=== PATIENT | female | born 1995 | race Caucasian/White ===

== ENCOUNTER 2016-07-24 14:49 | Inpatient (IN) | payer OTHER ==
--- NOTE | 2016-07-24 15:07 | EDPHY ---
H & P Stated Complaint: M1, SI - Personal History LMP (Females 10-55): 8-14 Days Ago Current Tetanus Diphtheria and Acellular Pertussis (TDAP): Yes - Medical/Surgical History Hx Asthma: No Hx Chronic Respiratory Disease: No Hx Diabetes: No Hx Cardiac Disease: No Hx Renal Disease: No Hx Cirrhosis: No Hx Alcoholism: No Hx HIV/AIDS: No Hx Splenectomy or Spleen Trauma: No Other PMH: denies - Social History Smoking Status: Never smoked Time Seen by Provider: 07/24/16 14:57 HPI/ROS: CHIEF COMPLAINT: Suicidal ideation HISTORY OF PRESENT ILLNESS: 20-year-old female arrives via police on an M1 hold after she went to [facility] voluntarily discussed increasing thoughts of depression, increasing suicidal ideation without plan. Prior history of cutting behavior, none recently. Denies hallucination. Denies alcohol or drug use. No history of hospitalization for depression or suicidal ideation although she notes she has been experiencing similar emotions for several years. PRIMARY CARE PROVIDER: [facility] REVIEW OF SYSTEMS: A ten point review of systems was performed and is negative with the exception of the items mentioned in the HPI PAST MEDICAL & SURGICAL HISTORY: Depression SOCIAL HISTORY: no alcohol or drug use PHYSICAL EXAM (Prior to examination, patient consented to physical exam, hands were washed and my usual and customary physical exam procedures followed) 1) GENERAL: Well-developed, well-nourished, alert and oriented. Appears to be in no acute distress.Cooperative 2) HEAD: Normocephalic, atraumatic 3) HEENT: Pupils equal, round, reactive to light bilaterally. Sclera anicteric. 4) NECK: Full range of motion, no meningeal signs. 5) LUNGS: Clear auscultation bilaterally, no wheezes, no rhonchi, no retractions. 6) HEART: Regular rate and rhythm, no murmur, no heave, no gallop. 7) ABDOMEN: No guarding, no rebound, no focal tenderness, 8) MUSCULOSKELETAL: multiple subacute scars. . 9) BACK: no visual or palpable abnormality. 10) SKIN: No rash, no petechiae. 11) Psychiatric: Patient is oriented X 3, there is no agitation. DIFFERENTIAL DIAGNOSIS: no particular include but limited to suicidal ideation , homicidal ideation, depression (Lesley Victoria Sarah Beth) Constitutional: Initial Vital Signs Temperature (C) 36.7 C 07/24/16 14:49 Heart Rate 112 H 07/24/16 14:49 Respiratory Rate 18 07/24/16 14:49 Blood Pressure 148/102 H 07/24/16 14:49 O2 Sat (%) 98 07/24/16 14:49 O2 Delivery Mode Room Air Allergies/Adverse Reactions: No Known Allergies Allergy (Unverified 07/24/16 15:02) Home Medications: Medication Instructions Recorded Multivitamins [Multivitamin (*)] 1 each PO DAILY 07/24/16 Medical Decision Making ED Course/Re-evaluation: 3:06 p.m.: Patient evaluated by myself she is calm, cooperative. Will plan on mental health evaluation. 5:00 p.m.: Care turned over to Dr. Alan Mathur (Lesley Victoria Sarah Beth) Other Provider: PHYSICIAN DOCUMENTATION: The patient was evaluated and managed by the Physician Dispatch Lead and myself. I have reviewed the chart and agree with the findings and plan of care as documented. In addition, I examined the patient myself at 2043. History confirmed as depression, severe. Physical findings as follows: Alert, conversant, slightly tearful. The patient will be transferred to [facility] for inpatient psychiatric hospital bed not available at this facility, in stable condition; accepting physician is Dr. Beverly. I am the secondary supervising physician. (Alan Mathur S) - Data Points Laboratory Results: Laboratory Results 07/24/16 16:20 07/24/16 16:20 07/24/16 07/24/16 07/24/16 16:27 16:20 16:20 WBC 7.36 10^3/uL 10^3/uL (3.80-9.50) RBC 5.04 10^6/uL 10^6/uL (4.18-5.33) Hgb 14.1 g/dL g/dL (12.6-16.3) Hct 42.1 % % (38.0-47.0) MCV 83.5 fL fL (81.5-99.8) MCH 28.0 pg pg (27.9-34.1) MCHC 33.5 g/dL g/dL (32.4-36.7) RDW 14.0 % % (11.5-15.2) Plt Count 305 10^3/uL 10^3/uL (150-400) MPV 8.8 fL fL (8.7-11.7) Neut % (Auto) 75.0 % H % (39.3-74.2) Lymph % (Auto) 19.7 % % (15.0-45.0) Providence % (Auto) 4.3 % L % (4.5-13.0) Eos % (Auto) 0.3 % L % (0.6-7.6) Baso % (Auto) 0.4 % % (0.3-1.7) Nucleat RBC Rel Count 0.0 % % (0.0-0.2) Absolute Neuts (auto) 5.52 10^3/uL 10^3/uL (1.70-6.50) Absolute Lymphs (auto) 1.45 10^3/uL 10^3/uL (1.00-3.00) Absolute Monos (auto) 0.32 10^3/uL 10^3/uL (0.30-0.80) Absolute Eos (auto) 0.02 10^3/uL L 10^3/uL (0.03-0.40) Absolute Basos (auto) 0.03 10^3/uL 10^3/uL (0.02-0.10) Absolute Nucleated RBC 0.00 10^3/uL 10^3/uL (0-0.01) Immature Gran % 0.3 % % (0.0-1.1) Immature Gran # 0.02 10^3/uL 10^3/uL (0.00-0.10) Sodium 142 mEq/L mEq/L (134-144) Potassium 4.4 mEq/L mEq/L (3.5-5.2) Chloride 104 mEq/L mEq/L (97-110) Carbon Dioxide 25 mEq/l mEq/l (22-31) Anion Gap 13 mEq/L mEq/L (8-16) BUN 13 mg/dL mg/dL (7-23) Creatinine 0.8 mg/dL mg/dL (0.6-1.0) Estimated GFR > 60 Glucose 94 mg/dL mg/dL (70-100) Calcium 10.3 mg/dL mg/dL (8.5-10.4) TSH 3.750 uIU/mL uIU/mL (0.465-4.680) Urine Test Salicylates < 1.0 mg/dL L mg/dL (2.0-20.0) Urine Opiates Screen Acetaminophen < 10 mcg/mL L mcg/mL (10.0-30.0) Urine Barbiturates Ur Phencyclidine Scrn Ur Amphetamine Screen U Benzodiazepines Scrn Urine Cocaine Screen U Marijuana (THC) Screen Ethyl Alcohol < 10 mg/dL mg/dL (0-10) 07/24/16 07/24/16 15:50 15:50 WBC RBC Hgb Hct MCV MCH MCHC RDW Plt Count MPV Neut % (Auto) Lymph % (Auto) Providence % (Auto) Eos % (Auto) Baso % (Auto) Nucleat RBC Rel Count Absolute Neuts (auto) Absolute Lymphs (auto) Absolute Monos (auto) Absolute Eos (auto) Absolute Basos (auto) Absolute Nucleated RBC Immature Gran % Immature Gran # Sodium Potassium Chloride Carbon Dioxide Anion Gap BUN Creatinine Estimated GFR Glucose Calcium TSH Urine Test NEGATIVE Salicylates Urine Opiates Screen NEGATIVE (NEGATIVE) Acetaminophen Urine Barbiturates NEGATIVE (NEGATIVE) Ur Phencyclidine Scrn NEGATIVE (NEGATIVE) Ur Amphetamine Screen NEGATIVE (NEGATIVE) U Benzodiazepines Scrn NEGATIVE (NEGATIVE) Urine Cocaine Screen NEGATIVE (NEGATIVE) U Marijuana (THC) Screen NEGATIVE (NEGATIVE) Ethyl Alcohol Departure - Departure Disposition: [facility] IP Clinical Impression: Suicidal ideation, Severe major depression Referrals: NOT,SURE OF PCP [Other] - As per Instructions
[2016-07-24 16:35] LABS: % IMMATURE GRANULYOCYTES 0.3 % (0.0-1.1); ABSOLUTE IMMATURE GRANULOCYTES 0.02 10^3/uL (0.00-0.10); ADD DIFF? NO; ADD MORPH? NO; ADD SCAN? NO; ATYPICAL LYMPHOCYTE FLAG 30 (0-99); FRAGMENT RBC FLAG 0 (0-99); HEMATOCRIT 42.1 % (38.0-47.0); HEMOGLOBIN 14.1 g/dL (12.6-16.3); LEFT SHIFT FLG 0 (0-99); LIPEMIA HEMOLYSIS FLAG 80 (0-99); MEAN CELL HEMOGLOBIN CONCENTR. 33.5 g/dL (32.4-36.7); MEAN CELL VOLUME 83.5 fL (81.5-99.8); MEAN PLATELET VOLUME 8.8 fL (8.7-11.7); PLATELET CLUMPS FLAG 0 (0-99); PLATELET COUNT 305 10^3/uL (150-400); RED BLOOD CELL COUNT 5.04 10^6/uL (4.18-5.33)
[2016-07-24 16:42] LABS: ANION GAP 13 mEq/L (8-16); CALCIUM 10.3 mg/dL (8.5-10.4); CARBON DIOXIDE 25 mEq/l (22-31); CHLORIDE 104 mEq/L (97-110); CREATININE 0.8 mg/dL (0.6-1.0); ETHANOL SERUM < 10 mg/dL (0-10); GLOMERULAR FILTRATION RATE > 60; GLUCOSE 94 mg/dL (70-100); POTASSIUM 4.4 mEq/L (3.5-5.2); SALICYLATE < 1.0 mg/dL (2.0-20.0); SODIUM 142 mEq/L (134-144)
[2016-07-24] MEDS ORDERED: LORazepam 0.5 MG TAB PO PRN (21:40)
[2016-07-24] MEDS ORDERED: diphenhydrAMINE 25 MG CAP PO PRN (21:40)
[2016-07-24] MEDS ORDERED: MAG HYDROX/AL HYDROX/SIMETH 30 ML UDCUP PO PRN (21:40)
[2016-07-24] MEDS ORDERED: NICOTINE POLACRILEX 2 MG GUM B PRN (21:40)
[2016-07-24] MEDS ORDERED: ACETAMINOPHEN 325 MG TAB PO PRN (21:40)
[2016-07-24] MEDS ORDERED: MAGNESIUM HYDROXIDE 30 ML UDCUP PO PRN (21:40)
[2016-07-25 06:35] VITALS: O2SAT 97
--- NOTE | 2016-07-25 13:32 | BCON ---
[f rep st] BEHAVIORAL HEALTH CONSULTATION INTERNAL MEDICINE CONSULTATION DATE OF CONSULTATION: 07/25/2016 REFERRING PHYSICIAN: Filomena Beverly MD REASON FOR CONSULTATION: Medical clearance for inpatient behavioral health stay. HISTORY OF PRESENT ILLNESS: The patient presented to the emergency department yesterday with depression and suicidal ideation. She had been sent from the [facility] the [facility] [facility]. She was evaluated by the mental health team and admitted for further psychiatric care. She has no current medical complaints. PAST MEDICAL HISTORY: She has no history of any medical illnesses and has never had any surgeries. MEDICATIONS: She was taking only a multivitamin. ALLERGIES: There is an allergy listed to milk-containing products. 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 She is a nonsmoker. She uses occasional alcohol and occasional marijuana at parties. She lives with her boyfriend of 3 years and other friends from high school. FAMILY HISTORY: Noncontributory. REVIEW OF SYSTEMS: A 10-point review of systems was conducted and was negative. PHYSICAL EXAM: VITAL SIGNS: Blood pressure is 114/64, heart rate is 97, respiratory rate is 12, oxygen saturation is 97% on room air, temperature is 36.7 degrees centigrade. Her weight is 54.4 kg, for a body mass index of 20. GENERAL: This is a well-nourished, well-developed, but thin woman, appears her chronologic age, cooperative and in no acute distress. HEENT: Extraocular movements are intact. Pupils are equal, round, and reactive to light. Mucous membranes are moist. Dentition is in good condition. NECK: Supple. HEART: There is a regular rate and rhythm with no murmurs, rubs, or gallops. LUNGS: Clear to auscultation bilaterally. ABDOMEN: Soft, nontender, nondistended with normal active bowel sounds. EXTREMITIES: There is no cyanosis, clubbing, or edema. NEUROLOGIC: She is alert and oriented x3. Cranial nerves 2-12 are grossly intact. There is no focal weakness, and sensation is intact to light touch. LABORATORY DATA: Laboratory studies drawn in the emergency department. CBC was overall within normal limits. She had a minor elevation of relative neutrophils at 75% of no clinical significance. There was an absolute decrement of eosinophils at 0.02, also of no clinical significance. Serum chemistry revealed normal renal function and electrolytes. TSH was normal at 3.75. Urine test was negative and toxicology screen in the serum was negative for salicylate, acetaminophen or ethyl alcohol, and the urine was negative for any substances of abuse. ASSESSMENT AND RECOMMENDATIONS: 1. Depression, pending further evaluation and management per Psychiatry and the mental health team. 2. Normal exam with no medical concerns. I see no medical contraindications to the patient's continued stay on the inpatient behavioral health unit or to any psychiatric medications or procedures. Thank you very much for including me in the care of this patient, and please do not hesitate to contact me or the hospitalist service should there be need for further medical evaluation. /[id number]/MODL MTDD
[2016-07-25] MEDS: ESCITALOPRAM OXALATE 10 MG TAB PO SCH (13:33)
--- NOTE | 2016-07-25 16:18 | BAPA ---
[f rep st] ADMISSION PSYCHIATRIC ASSESSMENT CHIEF COMPLAINT: "I just had a lot of anxiety and stress." HISTORY OF PRESENT ILLNESS: Patient is a 20-year-old female with no previous psychiatric treatment history who was referred on an M1 hold from the [facility]. She had gone to the [facility] because she had been feeling more and more anxious and depressed and had been having thou ghts of suicide. She reports having anxiety and stress mostly over academic issues, specifically th e fact that she has been doing poorly in her classes. She states that she had been neglecting her s tudies and not attending class, due in part to feeling unmotivated and depressed, but also due to in creasing social anxiety. She states that the thought of leaving her apartment give can be overwhelm ing and trigger physiologic symptoms of panic. She states that if she forces herself to go or for b oyfriend encouraged her to go that this will calm down and that she actually does okay, but sometime s the anticipatory anxiety is overwhelming enough to prohibit her from leaving. She also states morris t she has not been sleeping for 2-3 weeks and will stay up almost all night and then sleep during th e day. She relates this to feeling overwhelmed and anxious at night and having "too many things on my mind." She denies any accelerated thinking or increased thought production or other manic sympto ms stating that she feels tired, but just has too many concerns to allow her to relax enough to fall asleep. She has a history of cutting which she has done since high school and states that had lakeisha en worse several months ago but she has not done this in the last 2 months. She is concerned about that, however, and states that recently she has began begun having thoughts of cutting again and al so having nonspecific thoughts about , dying and suicide. She states that she is concerned for her overall safety which is why she went to the [facility] at the encouragement of her boyfr iebelinda. She describes other neurovegetative dysfunction including decreased appetite, with approximat e 10 pound weight loss. Poor attention and concentration, poor energy and motivation and significan t anhedonia. There was some mention in the [facility] report that she was having "rages." She seems genui kristen confused as to what this may reference stating that she does not have anger outbursts, but that she would suddenly begin to cry and become overwhelmed if there is too much noise or of stressful s ituations arise. She states that sometimes she will cut in these circumstances "out of self hate to blow off stress." Again, she states she has not cut in 2 months at this point, and states "I hope I would never do again." PAST PSYCHIATRIC HISTORY: Significant for no previous psychiatric treatments of any kind. She has not seen the therapist, has not taken any psychotropic medications. Has had no psychiatric hospital izations and has had no previous suicide attempts. ALLERGIES: No known medical allergies. CURRENT MEDICATIONS: None, including no [id number] or herbal medications. PAST MEDICAL HISTORY: Noncontributory with no history of central nervous system disease. SOCIAL HISTORY: The patient was born in [place] and then moved to [place], [place] about 5 y ears ago with her family due to her father's job. She states that her mother and father are still m arried, but that her father is currently living in [facility]. She has an older brother, who is a senior at [employer]. She herself is a sophomore at the [employer] and is studying biology and the ecology. She states she hopes someday to work in the [employer] of some type. She had previously received good grades, though states that she is at the verge of flunking several classes this semester due to her poor attendance and investment. She live s with her boyfriend of 3 years and 2 other friends from [place] in a home off campus. 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 She enjoys art, both painting and drawing. She likes to hike, play video games and hang out with her friends. She states her curralida t group of friends, including her boyfriend are very supportive. She vacillates somewhat on her rel ationship with her parents stating that they are "really good people and not abusive or anything," b ut that she is afraid that if they find out that she is in this hospital they will overreact and morris t she wants to "let them know on my own time." SUBSTANCE ABUSE HISTORY: The patient states she uses alcohol 1 or 2 times and occasional marijuana. FAMILY HISTORY: Noncontributory per patient's report, though her paternal grandmother may have suff ered from depression after the diagnosis of cancer. ADMISSION LABORATORY: CBC is normal. Serum chemistries are normal. Urine drug screen shows no sub stances of abuse. TSH is normal at 3.75 and urine test is negative. MENTAL STATUS EXAMINATION: Reveals a thin, though healthy-appearing female. She is dress ed casually in hospital [facility]. She is pleasant, cooperative and interactive. Her affect is slightly blunted though stable and appropriate. Her mood is described as "anxious." Her thought process is linear and goal directed. Her thought content reveals no evidence of psychosis. She is alert and oriented to person, place, time, and situation, and her sensorium is clear. She continues to state that she has thoughts of suicide but "I know I would never act on them." She denies at any time hav ing any intent to harm herself or plan. Her intellect appears to be average to above average as rony denced by her educational history, fund of knowledge, and vocabulary. Her insight and judgment appe ar to be good. IMPRESSION: Major depressive episode, recurrent, severe, without psychosis. Self-injurious behavio rs, academic stress, possible family conflicts. The patient is a 20-year-old female with history of some depressed mood and anxiety for at least the past several months but no previous treatments. She notes emerging suicidality prompting the outpatient clinic to place her on an M1 hold. I discussed with her various options for the zehra atment of her depression and anxiety including psychotherapy, subtractive life changes and medicatio ns. She is interested in antidepressant medications and we discussed the potential usefulness of a serotonin-selective antidepressant. After review of the various choices, she prefers a trial of Jose apro. We will begin at 10 mg after thorough review of the risks, benefits and alternatives, includi ng the warnings for suicidal adverse events in young adults. Will give a dose today and tomorrow mo rning and re-evaluate her stability at that time. I believe that her imminence in regard to dangero usness is low and would likely supported a discharge as early as tomorrow if everything seems to be going well. Estimated length of stay is 2-3 days. /[id number]/MODL
[2016-07-26 06:16] VITALS: BP 110/65; PULSE 105; RESP 15; TEMP 97.9
[2016-07-26] MEDS: ESCITALOPRAM OXALATE 10 MG TAB PO SCH (11:27)
--- NOTE | 2016-07-26 13:29 | SOAPPROG ---
SOAP Progress Note Assessment/Plan: Assessment: Plan: Objective: Vital Signs Temp Pulse Resp BP Pulse Ox 36.6 C 105 H 15 110/65 97 07/26/16 06:00 07/26/16 06:00 07/26/16 06:00 07/26/16 06:00 07/26/16 06:00 - Time Spent With Patient Time Spent With Patient: 35min ICD10 Worksheet Patient Problems: Problems Problem Status Onset Severe major depression Acute Suicidal ideation Acute
--- NOTE | 2016-07-26 15:21 | BDS ---
[f rep st] BEHAVIORAL HEALTH DISCHARGE SUMMARY ADMISSION DIAGNOSES: 1. Major depressive episode, recurrent, severe without psychosis, with suicidal ideation 2. History of self-injurious behavior, Academic stress, Possible family conflict. DISCHARGE DIAGNOSES: 1. Major depressive disorder, recurrent, moderate to severe. 2. Anxiety disorder unspecified, rule out generalized anxiety disorder, rule out social phobia, rule out panic disorder. 3. Suicidal ideation, resolved. BRIEF HISTORY: 20-year-old, female with no previous psychiatric treatment history who was referred on an M1 hold from the [facility] where she presented voluntarily at encouragement of her boyfriend due to increasing depression, anxiety, and thoughts of suicide. She denied any plan or intent of self-harm but did endorse a history of self cutting behavior starting 2 years ago, none in the past 2 months, and did not want to resume self cutting. Previous history of self cutting was not attempt to harm herself but was to help relieve stress and anxiety. Suicidal thoughts have been increasing recently with nonspecific thoughts about , dying, and suicide. She denied any plan or intent but did feel symptoms were getting worse so presented for treatment/help. She described other neurovegetative symptoms including decreased appetite with 10-pound weight loss, poor attention and concentration, poor energy and motivation, and significant anhedonia. She also had occasional crying spells when feeling very overwhelmed or stressed. The patient reports a long history of depression she dates back to age 15 but has not sought treatment and also reported that her immediate family was not aware. There is no history of psychotic symptoms, no history of sayda. No significant family psychiatric history. There is no significant history of substance use although patient admits occasionally drinking alcohol and smoking marijuana at parties. She reports significant anxiety history, anticipatory anxiety becoming overwhelming enough to prohibit her from leaving her home sometimes. She has anxiety at night with "too many things on my mind" causing her to have difficulty sleeping, and she has not been sleeping well for the past 2 or 3 weeks at night, rather sleeping during the day. She has had panic attacks in the past. The patient reports a supportive boyfriend of 3 years and roommates with whom she lives. She works part-time at [employer], about 17 hours a week. She is a sophomore at studying biology any ecology, but her grades have been dropping due to poor attendance and motivation. She enjoys art, primarily painting and drawing, and uses this as a stress relief. She was placed on an M1 hold at [facility] and admitted for evaluation, treatment, and safety. Patient did not have any significant past medical problems. Urine drug screen on admission was negative, and TSH was 3.3. A urine test was negative. HOSPITAL COURSE: Patient was admitted to [address] [place] [address] on M1 hold and placed on suicide precautions. She consistently denied any plan or intent to harm herself , reporting that suicidal ideations were primarily passive and worse when she felt anxious. She rated her suicidal ideation as an 8/10 on admission, but as noted with no plan or intent to harm herself. Upon interview with admitting psychiatrist, Dr. Lindsey, treatment options were discussed, and patient agreed to a trial of Lexapro. She was started on Lexapro 10 mg daily and received 1 dose on July 25 at noon and second dose on July 26 at 10 a.m. She was educated on the risks and benefits, including potential usefulness of serotonin antidepressant medication as well as the risks which included warnings for suicidal adverse events in young adults. She denied any side effects of this medication on interview on day of discharge, reporting only mild headache and possible mild sedation. She will continue to monitor these side effects for improvement. If feeling Lexapro causes sedation, she can take at night. She was scheduled for an outpatient medication management appointment on 07/30/2016. Patient was initially too anxious to participate in group on day of admission, but on day of discharge , she had attended group and done well. She used art work to decrease stress including making origami and drawing. She reported having no suicidal ideation at time of discharge but aware that such thoughts will come and go and agreed that if she notes any increase in intensity, frequency, or finding herself starting to plan or have more specific thoughts of suicide, that she will immediately call the crisis number, reach out for help, or go to the walk-in mental health crisis clinic. Patient slept well during her hospital stay, admitting she has taken Benadryl 25-50mg h.s. prn at home to help with sleep so this was added but not needed on unit. She expressed motivation to work with Student [employer] on her classes and allowing for her mental health needs. She was glad to have been hospitalized and seemed sincere in stating so. She felt that being here helped her with " talking about problems and making plans for my future" including talking with her parents who are supportive but previously did not know she was struggling with depression and anxiety. They were very supportive and talked with career information specialist as well as patient, and patient felt supported by them. Also states that her boyfriend came to visit and he talked with the other 2 roommates who are also patient's friends, and now they are also more aware of her struggles, and patient feels this will be additionally supportive for her. She worked on a safety plan during her hospital stay which was felt to be well thought out. She is glad to have been set up with a therapist and prescriber for early next week and felt ready for discharge today. It was felt she had benefitted from her hospital stay maximally and did not need to be further in the hospital due to no acute safety concerns and a plan in place for followup after discharge. Mental health hold will be terminated at discharge. Mother came to [facility] for support and will tile picker patient at discharge. MENTAL STATUS EXAM: On discharge, thin, healthy-appearing female, dressed casually. She is cooperative and engaged with good eye contact. Affect was calm, appropriate, reserved but otherwise euthymic. Mood was "getting better." Thoughts were linear, goal directed with no delusions, and she denied any psychotic symptoms. She is alert and oriented to person, place, time, and situation. Cognition was intact. She acknowledged suicidal ideation , passive which "come and go" but, at time of interview, denied having any suicidal ideation and was clearly future oriented. She denied at any time having any intent to harm herself or having had any plans. Her only suicidal thoughts that she reports having would be of "not being around." Insight and judgment were both good. Intellect seemed about average. DISCHARGE MEDICATIONS: Lexapro 10 mg p.o. daily, prescription provided for 1 month supply and no refills. The patient can continue with [id number] Benadryl 25 mg q.h.s. p.r.n. insomnia. DISCHARGE INSTRUCTIONS: Followup at [facility] with psychiatrist for intake medication appointment on 07/30/2016 as scheduled and on 07/31/2016 at 15:30 with private therapist covered by insurance.. Contact Student Services for additional support as discussed. Mother will tile picker patient from unit at discharge. Mental health hold terminated at time of discharge. /[id number]/MODL MTDD
== END 2016-07-26 14:30 | disposition home or self-care (01) | DRG 885 ==
LOC: BBEH 21:25
PROVIDERS: ADMIT Psychiatry & Neurology Behavioral Neurology & Neuropsychiatry; ATTEND Psychiatry & Neurology Behavioral Neurology & Neuropsychiatry
DX: F33.2 Major depressive disorder, recurrent severe without psychotic features (principal); F41.9 Anxiety disorder, unspecified
CPT/HCPCS: 80305; G0480

== ENCOUNTER 2017-02-01 11:08 | Emergency (ER) | payer OTHER ==
--- NOTE | 2017-02-01 11:26 | EDPHY ---
H & P Stated Complaint: Left upper quad abdominal pain x 2 weeks worse since last night Time Seen by Provider: 02/01/17 11:25 - Personal History Current Tetanus/Diphtheria Vaccine: Unsure Current Tetanus Diphtheria and Acellular Pertussis (TDAP): Unsure - Medical/Surgical History Hx Asthma: No Hx Chronic Respiratory Disease: No Hx Diabetes: No Hx Cardiac Disease: No Hx Renal Disease: No Hx Cirrhosis: No Hx Alcoholism: No Hx HIV/AIDS: No Hx Splenectomy or Spleen Trauma: No Other PMH: denies. no abd surgeries - Social History Smoking Status: Never smoked Constitutional: Initial Vital Signs Temperature (C) 36.7 C 02/01/17 11:12 Heart Rate 90 02/01/17 11:12 Respiratory Rate 16 02/01/17 11:12 Blood Pressure 102/71 02/01/17 11:12 O2 Sat (%) 98 02/01/17 11:12 O2 Delivery Mode Room Air Allergies/Adverse Reactions: Milk Containing Products [dairy] Allergy (Verified 07/24/16 22:17) Home Medications: Medication Instructions Recorded Ondansetron Odt [Zofran Odt 4 mg 4 mg PO Q4 PRN #10 tab 02/01/17 (RX)] Sertraline HCl 02/01/17 Medical Decision Making - Diagnostics Imaging Results: Imaging Impressions Abdomen Ultrasound 02/01/17 11:40 Impression: 1. No acute findings in the abdomen 2. Probable mild fatty infiltration of the liver. Findings discussed with Papito Dunaway MD 02/01/2017 at 13:04. Imaging: Discussed imaging studies w/ factory hand Radiologist ED Course/Re-evaluation: CHIEF COMPLAINT: Abdominal pain HISTORY OF PRESENT ILLNESS: The patient is a 21 y/o female with a history of migraines complaining of intermittent abdominal pain for a few weeks that became constant last night. She describes her pain as "throbbing," but mild in severity. She has associated nausea and mild dizziness, though she notes she had a migraine yesterday and took medication that can have dizziness as a side effect. She cannot identify obvious precipitating cause of her symptoms. She denies vomiting, diarrhea, fever, or other complaints. She has a remote history of bladder surgery as child and gets occasional UTIs, but is otherwise healthy. Her last menstrual period was 1 week ago. REVIEW OF SYSTEMS: A 10 point review of systems was performed and is negative with the exception of the elements mentioned in the history of present illness. PHYSICAL EXAM: HR, BP, O2 Sat, RR. Temp noted General Appearance: Alert, well hydrated, appropriate, and non-toxic appearing. Head: Atraumatic without scalp tenderness or obvious injury Eyes: Pupils equal, round, reactive to light and accommodation, EOMI, no trauma , no injection. Nose: Atraumatic, no rhinorrhea, clear. Throat: There is no erythema or exudates, no lesions, normal tonsils, mucus membranes moist. Neck: Supple, nontender, no lymphadenopathy. Respiratory: No retractions, no distress, no wheezes, and no accessory muscle use. Lungs are clear to auscultation bilaterally. Cardiovascular: Regular rate and rhythm, no murmurs, rubs, or gallops. Good capillary refill all extremities. Gastrointestinal: Abdomen is soft, minimal periumbilical tenderness, non- distended, no masses, no rebound, no guarding, no peritoneal signs. Musculoskeletal: Normal active ROM of all extremities, atraumatic. Neurological: Alert, appropriate, and interactive. The patient has non-focal cranial nerves, motor, sensory, and cerebellar exam. Skin: No rashes, good turgor, no nodules on palpation. Past medical history: Migraines, occasional UTIs, possible POTS, depression/ anxiety Past surgical history: remote history of bladder surgery as child Family history: noncontributory Social history: [employer] student, lives in [place] Prior medical records reviewed including psychiatric admission 07/24/16 for depression. DIAGNOSTICS/PROCEDURES/CRITICAL CARE TIME: Abdominal US: nothing acute DIFFERENTIAL DIAGNOSIS: The differential diagnosis for the patient's abdominal pain included but was not limited to ovarian cyst, pelvic inflammatory disease, ovarian torsion, urinary tract infection, ectopic , cholecystitis, and appendicitis. MEDICAL DECISION MAKING: This is a well-appearing 21 y/o female with a history of migraines who presents with a few-week history of mild periumbilical abdominal pain and nausea that became constant last night. Her abdomen is soft with only slight periumbilical tenderness on exam. I do not have a high suspicion for surgical process. Plan for IV, labs, UA, and abdominal US. 2L IV NS administered. Reassessed patient and discussed work up. Her labs and ultrasound have not revealed obvious cause of her symptoms. She feels improved after IV fluids and ready to go home. Her abdomen is benign. I've recommended follow up with her PCP for unimproved symptoms. She will receive a script for Zofran and standard return precautions. She is comfortable with this plan. - Data Points Laboratory Results: Laboratory Results 02/01/17 11:40 02/01/17 11:40 02/01/17 02/01/17 02/01/17 12:50 11:40 11:40 WBC RBC Hgb Hct MCV MCH MCHC RDW Plt Count MPV Neut % (Auto) Lymph % (Auto) [place] % (Auto) Eos % (Auto) Baso % (Auto) Nucleat RBC Rel Count Absolute Neuts (auto) Absolute Lymphs (auto) Absolute Monos (auto) Absolute Eos (auto) Absolute Basos (auto) Absolute Nucleated RBC Immature Gran % Immature Gran # Sodium 141 mEq/L mEq/L (134-144) Potassium 4.0 mEq/L mEq/L (3.5-5.2) Chloride 104 mEq/L mEq/L (97-110) Carbon Dioxide 23 mEq/l mEq/l (22-31) Anion Gap 14 mEq/L mEq/L (8-16) BUN 9 mg/dL mg/dL (7-23) Creatinine 0.7 mg/dL mg/dL (0.6-1.0) Estimated GFR > 60 Glucose 69 mg/dL L mg/dL (70-100) Calcium 10.5 mg/dL H mg/dL (8.5-10.4) Lipase 123 IU/L IU/L (23-300) Beta HCG, Qual NEGATIVE Urine Color Pending Urine Appearance Pending Urine pH Pending Ur Specific [place] Pending Urine Protein Pending Urine Ketones Pending Urine Blood Pending Urine Nitrate Pending Urine Bilirubin Pending Urine Urobilinogen Pending Ur Leukocyte Esterase Pending Urine Glucose Pending 02/01/17 11:40 WBC 3.50 10^3/uL L 10^3/uL (3.80-9.50) RBC 4.69 10^6/uL 10^6/uL (4.18-5.33) Hgb 13.6 g/dL g/dL (12.6-16.3) Hct 40.1 % % (38.0-47.0) MCV 85.5 fL fL (81.5-99.8) MCH 29.0 pg pg (27.9-34.1) MCHC 33.9 g/dL g/dL (32.4-36.7) RDW 13.4 % % (11.5-15.2) Plt Count 233 10^3/uL 10^3/uL (150-400) MPV 9.1 fL fL (8.7-11.7) Neut % (Auto) 49.4 % % (39.3-74.2) Lymph % (Auto) 42.0 % % (15.0-45.0) [place] % (Auto) 7.1 % % (4.5-13.0) Eos % (Auto) 0.9 % % (0.6-7.6) Baso % (Auto) 0.6 % % (0.3-1.7) Nucleat RBC Rel Count 0.0 % % (0.0-0.2) Absolute Neuts (auto) 1.73 10^3/uL 10^3/uL (1.70-6.50) Absolute Lymphs (auto) 1.47 10^3/uL 10^3/uL (1.00-3.00) Absolute Monos (auto) 0.25 10^3/uL L 10^3/uL (0.30-0.80) Absolute Eos (auto) 0.03 10^3/uL 10^3/uL (0.03-0.40) Absolute Basos (auto) 0.02 10^3/uL 10^3/uL (0.02-0.10) Absolute Nucleated RBC 0.00 10^3/uL 10^3/uL (0-0.01) Immature Gran % 0.0 % % (0.0-1.1) Immature Gran # 0.00 10^3/uL 10^3/uL (0.00-0.10) Sodium Potassium Chloride Carbon Dioxide Anion Gap BUN Creatinine Estimated GFR Glucose Calcium Lipase Beta HCG, Qual Urine Color Urine Appearance Urine pH Ur Specific [place] Urine Protein Urine Ketones Urine Blood Urine Nitrate Urine Bilirubin Urine Urobilinogen Ur Leukocyte Esterase Urine Glucose Medications Given: Discontinued Medications Sodium Chloride (Ns) 1,000 mls @ 0 mls/hr IV ONCE ONE PRN Reason: Wide Open Stop: 02/01/17 11:39 Last Admin: 02/01/17 11:39 Dose: 1,000 mls Sodium Chloride (Ns) 1,000 mls @ 0 mls/hr IV EDNOW ONE; Wide Open PRN Reason: Protocol Stop: 02/01/17 11:40 Last Admin: 02/01/17 11:42 Dose: Not Given Departure - Departure Disposition: Home, Routine, Self-Care Clinical Impression: Abdominal pain Qualifiers: Abdominal location: periumbilical Qualified Code(s): R10.33 - Periumbilical pain Condition: Good Instructions: Ondansetron (By mouth), Acute Abdominal Pain (ED) Additional Instructions: Use Zofran as prescribed as needed for nausea and vomiting. Follow up with your primary care provider for unimproved symptoms over the next few days. Return to the ED for unimproved symptoms. Referrals: [facility],. [Clinic] - As per Instructions Prescriptions: Ondansetron Odt [Zofran Odt 4 mg (RX)] 4 mg PO Q4 PRN #10 tab PRN Reason: Nausea/Vomiting, Use 1st Report Scribed for: Papito Dunaway Report Scribed by: Shauna Dunham Date of Report: 02/01/17 Time of Report: 11:41
[2017-02-01] MEDS ORDERED: NS 1,000 ML IV ONE ×2 (11:38→11:39)
[2017-02-01 11:46] LABS: ADD DIFF? NO; ADD MORPH? NO; ADD SCAN? NO; ATYPICAL LYMPHOCYTE FLAG 30 (0-99); FRAGMENT RBC FLAG 0 (0-99); HEMATOCRIT 40.1 % (38.0-47.0); HEMOGLOBIN 13.6 g/dL (12.6-16.3); LEFT SHIFT FLG 0 (0-99); LIPEMIA HEMOLYSIS FLAG 90 (0-99); MEAN CELL HEMOGLOBIN CONCENTR. 33.9 g/dL (32.4-36.7); MEAN CELL VOLUME 85.5 fL (81.5-99.8); MEAN PLATELET VOLUME 9.1 fL (8.7-11.7); PLATELET CLUMPS FLAG 0 (0-99); PLATELET COUNT 233 10^3/uL (150-400); RED BLOOD CELL COUNT 4.69 10^6/uL (4.18-5.33); RED CELL DISTRIBUTION WIDTH 13.4 % (11.5-15.2)
[2017-02-01 12:00] LABS: ANION GAP 14 mEq/L (8-16); CALCIUM 10.5 mg/dL (8.5-10.4); CARBON DIOXIDE 23 mEq/l (22-31); CHLORIDE 104 mEq/L (97-110); CREATININE 0.7 mg/dL (0.6-1.0); GLOMERULAR FILTRATION RATE > 60; GLUCOSE 69 mg/dL (70-100); SODIUM 141 mEq/L (134-144)
[2017-02-01 13:52] VITALS: BP 105/65; PULSE 70; RESP 18; TEMP 98.2; O2SAT 95
[2017-02-01 13:57] LABS: COLOR LT. YELLOW; LEUKOCYTE ESTERASE,URINE NEGATIVE (NEGATIVE); NITRITE,URINE NEGATIVE (NEGATIVE)
== END 2017-02-01 13:55 | disposition home or self-care (01) ==
DX: R10.33 Periumbilical pain (principal); R42 Dizziness and giddiness